=== PATIENT | male | born 1980 | race Two or more races ===

== ENCOUNTER 2022-04-06 09:29 | Emergency (ER) | payer OTHER, SELFPAY ==
[2022-04-06] VITALS (7 sets, daily range): BP systolic 126–148; BP diastolic 79–93; PULSE 69–87; RESP 14–18; TEMP 36.6–37; O2SAT 96–99; BMI 23.8
--- NOTE | ~2022-04-06 | CT_ITS ---
EXAMINATION: CT HEAD WITHOUT CONTRAST CLINICAL INFORMATION: Dizziness, headache. COMPARISON: None TECHNIQUE: Contiguous axial imaging was performed from the skull base to vertex without intravenous administration of contrast. Coronal and sagittal reformatted images were obtained. This CT examination was performed using dose optimization techniques as appropriate, variously including the following: *Automated exposure control *Adjustment of mA and/or kV according to patient size (this includes techniques or standardized protocols for targeted exams where dose is matched to indication/reason for exam; i.e. extremities or head) *Use of iterative reconstruction technique DLP: 654 mGy-cm FINDINGS: There is no evidence of acute intracranial hemorrhage or territorial infarction. No abnormal mass effect or midline shift is seen. [place] to white matter differentiation is well preserved. No extra-axial fluid collections are identified. The ventricles are normal in size. There is no abnormal attenuation within the brain parenchyma. The osseous structures and soft tissues are normal. The visualized paranasal sinuses are clear. Hypoaeration of the right mastoid air cells with small mastoid effusion inferiorly. Left mastoid air cells are clear. Mild nasal septal deviation, apex the right. CT/CT head/brain wo con IMPRESSION: No acute intracranial pathology.
[2022-04-06 10:20] LABS: COVID-19 Test Negative (Negative)
--- NOTE | 2022-04-06 11:20 | ECG_ITS ---
Test Reason : dizziness Blood Pressure : / mmHG Vent. Rate : 080 BPM Atrial Rate : 080 BPM P-R Int : 148 ms QRS Dur : 078 ms QT Int : 360 ms P-R-T Axes : 034 053 051 degrees QTc Int : 415 ms Normal sinus rhythm Normal ECG No previous ECGs available Referred By: Whitney Renae Electronically Signed By:JIMENEZ BETH
--- NOTE | 2022-04-06 11:21 | ED.GENADULT ---
HPI - General Adult General Chief complaint: General Medical Stated complaint: dizzy both ear issues Time Seen by Provider: 04/06/22 10:58 Source: patient Mode of arrival: ambulatory History of Present Illness HPI narrative: 42-year-old male with no significant past medical history presenting to the ED complaining of right ear feeling blocked, intermittent room spinning dizziness, headache, and nausea x4 days. Reports symptoms were at maximum yesterday, mildly improved at present. Denies experiencing similar symptoms in the past. Also reports subjective fevers and generalized fatigue/weakness. Also reports chest tightness yesterday, denies at present. Denies head injury/trauma or falls, vision change or loss, abdominal pain, vomiting, diarrhea, drainage from ears/hearing loss. Denies taking anticoagulation Onset (ago): day(s) Related Data Allergies Allergy/AdvReac Type Severity Reaction Status Date / Time No Known Allergies Allergy Verified 04/06/22 09:32 Review of Systems Review of Systems: Constitutional: +subj Fever, No Chills, + Fatigue, No Malaise ENT/Mouth: No Hearing loss, + Ear blockage, No Nasal Congestion, No Sinus Pain, No Hoarseness, No sore throat, No Rhinorrhea, No Swallowing Difficulty Eyes: No Eye Pain, No Swelling, No Discharge, No Vision Changes Cardiovascular: + Chest tightness (yesterday), No SOB, No Edema, No Palpitations Respiratory: No Cough, No Sputum, No Dyspnea Gastrointestinal: + Nausea, No Vomiting, No Diarrhea, No Constipation, No Abdominal pain Genitourinary: No Dysuria, No Urinary Frequency, No Hematuria, No Urinary Incontinence/retention, No Hesitancy Musculoskeletal: No joint pain, No Myalgias, No Joint Swelling Skin: No Skin Lesions, No rash Neuro: No Weakness, No Numbness, No Paresthesias, No Loss of Consciousness, + Dizziness, + Headache Yes all other systems are reviewed and are negative Constitutional: Constitutional: Reports as per HPI Neurologic: Denies Abnormal speech present [facility] Past Medical History Attestation statement: The following information was validated with the patient. Social History Social History Advance Directives: No Advance Directives Information Provided: No Physical Exam ED Vital Signs: Vital Signs - 24 hr 04/06/22 09:32 04/06/22 11:02 04/06/22 12:40 Temperature 98.6 F 97.9 F Pulse Rate 87 75 72 Respiratory Rate 18 14 Blood Pressure 133/79 148/87 H 126/81 Pulse Oximetry 96 99 Oxygen Delivery Method Room Air Room Air 04/06/22 12:41 04/06/22 12:41 04/06/22 13:21 Temperature Pulse Rate 77 70 73 Respiratory Rate 16 Blood Pressure 140/93 H 140/92 H 126/85 Pulse Oximetry 99 Oxygen Delivery Method Room Air 04/06/22 14:32 04/06/22 15:10 Temperature 98.6 F 98.1 F Pulse Rate 73 69 Respiratory Rate 14 Blood Pressure 129/80 131/81 Pulse Oximetry 99 99 Oxygen Delivery Method Room Air Room Air BMI result Body Mass Index 23.8 Const General: cooperative, healthy appearing, no acute distress, well developed, alert and awake Orientation/consciousness: patient oriented x3 Limitations: no limitations HENMT Head: Yes normal to inspection and Yes atraumatic Ears: hearing grossly normal bilaterally, external ears normal, mastoids normal and unable to visualize TM bilaterally (Cerumen impaction) General nose exam: Normal external nose present Face and sinus: Yes normal facial exam Mouth: Normal oral and palatal mucosa present Throat: Yes posterior oropharynx normal, Yes tonsils normal, Yes uvula midline, No peritonsillar mass, No uvula laterally displaced and No uvular edema Eyes General: appearance normal, both eyes and all related structures Pupils: Equal, round and reactive pupils present EOM: EOMs intact bilaterally Neck Neck: Yes normal visual inspection, Yes full ROM, Yes no meningeal signs, Yes trachea midline, Yes supple and No anterior neck swelling Resp Effort & Inspection: normal respiratory effort and no respiratory distress Auscultation: clear to auscultation bilaterally, no crackles, no rales, no rhonchi and no wheezes Cardio Rate: regular rate Heart sounds: S1 normal heart sound present and S2 normal heart sound present GI Inspection: Yes normal to inspection Palpation (GI): Soft to palpation, nontender, no guarding and not rigid General: Yes no CVA tenderness Back/Spine/Pelvis Back: no CVA tenderness Skin Rashes: no rashes Wounds: no wounds Neuro General: patient oriented x3, gait normal, tone normal, moves all extremities, no meningeal signs, no focal motor deficits and CN's II-XI intact bilaterally Cranial nerves: Yes CN's II-XII intact bilaterally, Yes Equal, round and reactive pupils present and Yes Bilaterally intact EOM present Cognition (Neuro): normal cognition Speech: No Abnormal speech present Gait exam (Neuro): Normal gait present Motor exam (neuro): 5/5 motor strength present throughout, Pronator motor function not present and no tremor noted Coordination: [id number] test normal Romberg Test: Negative Extrem General: Yes normal to inspection and Yes no pedal edema Course Course Course Narrative: -labs unremarkable. Troponin negative. COVID-19 negative 14:00 -- CT head/brain wo con IMPRESSION: No acute intracranial pathology. -patient has been ambulating in the ED with steady gait, no ataxia. Reports symptomatic improvement/resolution after cerumen disimpacted in the ED. Results discussed. Recommended follow-up with ENT/PCP. Results discussed with patient including worrisome signs and symptoms and strict return precautions, and when to return to the emergency department. They verbalized understanding and feel safe for discharge at this time. Procedures Ear Wax Removal Both Ears: Cerumenolytic Used: 5-10% Sodium Bicarb solution Results: Re-examined: cerumen removed completely TM Examination: other (Right TM cloudy and dull. Left TM with slight effusion) Ear Canal Exam: atraumatic Patient Tolerated Procedure: well Technique: ear canal irrigated and ear canal curetted Additional Comments: A large amount of cerumen extracted from both ears Medical Decision Making MDM Narrative Medical decision making narrative: 42-year-old male with no significant past medical history presenting to the ED complaining of right ear feeling blocked, intermittent room spinning dizziness, headache, and nausea x4 days. Also reports subjective fevers and generalized fatigue/weakness. On exam vital signs stable, NAD, nontoxic appearing, no focal neuro deficits, ambulating with steady gait, bilateral cerumen impaction noted. Lungs CTA. Concern for cerumen impaction causing dizziness vs BPPV vs viral illness. Lower suspicion for SAH with fluctuating in intensity symptoms or Meniere's disease. Symptoms atypical for CVA/TIA. Lower suspicion for ACS/PE Plan: EKG, labs, UA, head CT, meclizine, cerumen disimpaction, re-evaluated Medical Records Medical records reviewed: Yes I reviewed the patient's medical records. Lab Data Lab results reviewed: Yes I reviewed the patient's lab results. Result diagrams: 04/06/22 11:56 04/06/22 11:56 Labs: Lab Results 04/06/22 04/06/22 04/06/22 Range/Units 09:45 11:56 11:56 WBC 5.5 (4.8-10.8) X10*3/uL RBC 5.77 (4.60-5.80) X10*6/uL Hgb 16.8 (14.0-18.0) g/dl Hct 47.9 (42.0-52.0) % MCV 83.0 (80.0-98.0) fL MCH 29.1 (27.0-33.0) pg MCHC 35.1 (31.0-36.0) g/dl RDW 12.4 (11.0-16.0) % Plt Count 209 (160-400) X10*3/uL MPV 9.8 (9.4-12.4) fL Immature Gran % (Auto) 0.6 H (0.0-0.4) % Neut % (Auto) 54.5 (45-73) % Lymph % (Auto) 36.0 (20-40) % [place] % (Auto) 6.8 (2-11) % Eos % (Auto) 1.5 (0-4) % Baso % (Auto) 0.6 (0-2) % Lymph # (Auto) 2.0 (1.2-4.9) X10*3/uL [place] # (Auto) 0.4 (0.1-1.2) X10*3/uL Eos # (Auto) 0.1 (0.0-0.4) X10*3/uL Baso # (Auto) 0.0 (0.0-0.2) X10*3/uL Abs Immat Gran (auto) 0.03 (0.00-0.03) X10*3/uL Absolute Neuts (auto) 3.0 (2.0-8.3) x10*3/uL Absolute Nucleated RBC 0.000 (0.0-0.012) X10*3/uL Nucleated RBC % (auto) 0.0 (0.0-0.2) /100WBC Sodium 138 (135-145) mmol/L Potassium 4.3 (3.3-5.1) mmol/L Chloride 105 (96-108) mmol/L Carbon Dioxide 24 (22-29) mmol/L Anion Gap 13 (12-20) BUN 14 (9-16) mg/dL Creatinine 0.78 (0.5-1.4) mg/dL Estim Creat Clear Calc 101.1 Estimated GFR > 60 Random Glucose 107 (60-115) mg/dL Calcium 9.1 (8.4-10.2) mg/dL Magnesium 2.2 (1.6-2.6) mg/dL Total Bilirubin 0.4 (0.0-1.0) mg/dL Direct Bilirubin 0.2 (0.0-0.5) mg/dL AST 17 (5-37) U/L ALT 28 (0-40) U/L Alkaline Phosphatase 83 (39-117) U/L Troponin I High Sens (<3.5-35.0) ng/L Total Protein 7.2 (6.5-8.0) g/dL Albumin 4.3 (3.5-5.0) g/dL Urine Color Urine Appearance Urine pH (5.0-8.0) Ur Specific [place] (1.005-1.025) Urine Protein (NEG-TRACE) MG/DL Urine Glucose (UA) (NEG) MG/DL Urine Ketones (NEG) MG/DL Urine Blood (NEG) Urine Nitrite (NEG) Ur Leukocyte Esterase (NEG) COVID-19 (IVANA) Negative (Negative) COVID-19 Clin Com See Note 04/06/22 04/06/22 Range/Units 11:56 13:05 WBC (4.8-10.8) X10*3/uL RBC (4.60-5.80) X10*6/uL Hgb (14.0-18.0) g/dl Hct (42.0-52.0) % MCV (80.0-98.0) fL MCH (27.0-33.0) pg MCHC (31.0-36.0) g/dl RDW (11.0-16.0) % Plt Count (160-400) X10*3/uL MPV (9.4-12.4) fL Immature Gran % (Auto) (0.0-0.4) % Neut % (Auto) (45-73) % Lymph % (Auto) (20-40) % [place] % (Auto) (2-11) % Eos % (Auto) (0-4) % Baso % (Auto) (0-2) % Lymph # (Auto) (1.2-4.9) X10*3/uL [place] # (Auto) (0.1-1.2) X10*3/uL Eos # (Auto) (0.0-0.4) X10*3/uL Baso # (Auto) (0.0-0.2) X10*3/uL Abs Immat Gran (auto) (0.00-0.03) X10*3/uL Absolute Neuts (auto) (2.0-8.3) x10*3/uL Absolute Nucleated RBC (0.0-0.012) X10*3/uL Nucleated RBC % (auto) (0.0-0.2) /100WBC Sodium (135-145) mmol/L Potassium (3.3-5.1) mmol/L Chloride (96-108) mmol/L Carbon Dioxide (22-29) mmol/L Anion Gap (12-20) BUN (9-16) mg/dL Creatinine (0.5-1.4) mg/dL Estim Creat Clear Calc Estimated GFR Random Glucose (60-115) mg/dL Calcium (8.4-10.2) mg/dL Magnesium (1.6-2.6) mg/dL Total Bilirubin (0.0-1.0) mg/dL Direct Bilirubin (0.0-0.5) mg/dL AST (5-37) U/L ALT (0-40) U/L Alkaline Phosphatase (39-117) U/L Troponin I High Sens < 3.5 (<3.5-35.0) ng/L Total Protein (6.5-8.0) g/dL Albumin (3.5-5.0) g/dL Urine Color STRAW Urine Appearance CLEAR Urine pH 7.5 (5.0-8.0) Ur Specific [place] 1.010 (1.005-1.025) Urine Protein NEG (NEG-TRACE) MG/DL Urine Glucose (UA) 250 H (NEG) MG/DL Urine Ketones NEG (NEG) MG/DL Urine Blood NEG (NEG) Urine Nitrite NEG (NEG) Ur Leukocyte Esterase NEG (NEG) COVID-19 (IVANA) (Negative) COVID-19 Clin Com Discharge Plan Discharge Clinical Impression: Bilateral impacted cerumen, Dizziness Patient Disposition: Home, Self-Care Instructions: Vertigo (ED) Additional Instructions: Your blood work, urine, and CT scan were reassuring today in the emergency department. your ears were De clogged The ear wax in your ears was probably causing your symptoms today. If symptoms persist, recur, become worsening you have headache, weakness, nausea or vomiting return to the emergency department immediately. You need to follow-up with an ENT specialist Practice 1:1 ratio does of normal saline and hydrogen peroxide soaks at home in your ear as discussed to loosen your ear wax. There also [id number] ear your getting systems. Referrals: Delio Whyte [Physician] - 3 days Stand Alone Forms: Work/School Release
[2022-04-06 12:01] LABS: MANUAL DIFF FLAG NO
[2022-04-06 12:02] LABS: Basophils Percent Auto 0.6 % (0-2); Eosinophils Absolute Auto 0.1 X10*3/uL (0.0-0.4); Eosinophils Percent Auto 1.5 % (0-4); Hematocrit 47.9 % (42.0-52.0); Hemoglobin 16.8 g/dl (14.0-18.0); Imm Gran Abs Auto 0.03 X10*3/uL (0.00-0.03); Imm Gran Pct Auto 0.6 % (0.0-0.4); Mean Corpuscular HGB Conc 35.1 g/dl (31.0-36.0); Mean Corpuscular Hemoglobin 29.1 pg (27.0-33.0); Mean Platelet Volume 9.8 fL (9.4-12.4); Monocytes Absolute Auto 0.4 X10*3/uL (0.1-1.2); Monocytes Percent Auto 6.8 % (2-11); Neutrophils Percent Auto 54.5 % (45-73); Platelet Count 209 X10*3/uL (160-400); Red Blood Count 5.77 X10*6/uL (4.60-5.80); Red Cell Distribution Width 12.4 % (11.0-16.0); White Blood Count 5.5 X10*3/uL (4.8-10.8)
[2022-04-06] MEDS: Meclizine HCl 25 MG TABLET PO (12:08)
[2022-04-06] MEDS: 0.9 % Sodium Chloride 1,000 ML 999 ML IV (12:08)
[2022-04-06 12:30] LABS: Alanine Aminotransferase 28 U/L (0-40); Albumin Level 4.3 g/dL (3.5-5.0); Alkaline Phosphatase 83 U/L (39-117); Anion Gap 13 (12-20); Aspartate Amino Transferase 17 U/L (5-37); Bilirubin Direct 0.2 mg/dL (0.0-0.5); Bilirubin Total 0.4 mg/dL (0.0-1.0); Blood Urea Nitrogen 14 mg/dL (9-16); Calcium 9.1 mg/dL (8.4-10.2); Carbon Dioxide 24 mmol/L (22-29); Chloride 105 mmol/L (96-108); Creatinine Clr Calc Pharmacy 101.1; Estimated Glomerular Filt Rate > 60; Glucose Random 107 mg/dL (60-115); Magnesium 2.2 mg/dL (1.6-2.6); Potassium 4.3 mmol/L (3.3-5.1); Sodium 138 mmol/L (135-145); Total Protein 7.2 g/dL (6.5-8.0)
[2022-04-06 12:32] LABS: Troponin-I High Sensitivity < 3.5 ng/L (<3.5-35.0)
[2022-04-06 13:11] LABS: Appearance Urine CLEAR; Color Urine STRAW; Glucose Urine UA 250 MG/DL (NEG); Leukocyte Esterase Urine NEG (NEG); Nitrite Urine NEG (NEG); PH 7.5 (5.0-8.0); Urine Blood NEG (NEG); Urine Ketones NEG (NEG); Urine Protein NEG (NEG-TRACE)
== END 2022-04-06 15:48 | disposition home or self-care (01) ==
PROVIDERS: Physician Assistant; Emergency Provider Emergency Medicine Emergency Medical Services; PCP Internal Medicine
DX: H61.23 Impacted cerumen, bilateral (principal); R42 Dizziness and giddiness; Z20.822 Contact with and (suspected) exposure to COVID-19
CPT/HCPCS: 36415; 69210; 70450; 80048; 80076; 81003; 83735; 84484; 85025; 87635; 93005; 96360; 96361; 99284